=== PATIENT | female | born 1950 | race Caucasian/White ===

== ENCOUNTER 2018-05-17 14:08 | Outpatient (CLI) | payer MEDICARE, MEDICAID ==
--- NOTE | 2018-05-17 15:37 | MRI ---
NONCONTRAST MRI CERVICAL SPINE: 05/17/2018 HISTORY: Neck pain for several years, and right shoulder pain for the last six months. FINDINGS: There is mild cerebral and cerebellar volume loss partially seen. The cervicomedullary junction has normal signal intensity. There is mild heterogeneity of the bone marrow, the majority of which is related to endplate degenera tive changes. Multilevel degenerative changes are present with multilevel osteophytes seen anteriorl y and posteriorly. C2-C3: There is a mild broad-based disk osteophyte complex, which slightly narrows the ventral subar achnoid space. There are facet degenerative changes on the right, resulting in mild to moderate righ t-sided neural foraminal narrowing. The left neural foramen is patent. C3-C4: There is a broad-based disk osteophyte complex. This narrows the central spinal canal, and t here is mild flattening at the ventral aspect of the spinal cord. The right neural foramen is patent , but there is mild to moderate left-sided neural foraminal narrowing. C4-C5: There is loss of intervertebral disk height. A broad-based disk osteophyte complex is presen t, greater on the right, with associated uncinate process hypertrophy. This results in generalized n arrowing of the central spinal canal. There is mild to moderate right-sided neural foraminal narrowi ng. The left neural foramen is patent. C5-C6: There is loss of intervertebral disk height. There is a broad-based disk osteophyte complex present. This results in mild to moderate narrowing of the central spinal canal. There is flattenin g at the anterior aspect of the spinal cord, but there is normal signal intensity in the spinal cord. There is mild right and severe left-sided neural foraminal narrowing. C6-C7: There is loss of intervertebral disk height. There is a broad-based disk osteophyte complex seen posteriorly. Findings result in moderate narrowing of the central spinal canal and flattening a t the anterior aspect of the spinal cord. There is moderate left and moderate to severe right-sided neural foraminal narrowing. C7-T1: There is a broad-based disk osteophyte complex that mildly narrows the ventral subarachnoid s pace. The neural foramina appear patent, although there is mild encroachment on the left neural fora men. T1-T2: There is trace anterolisthesis of T1 on T2. There is a mild disk osteophyte complex, which o nly results in slight effacement of the ventral subarachnoid space. The neural foramina are patent. IMPRESSION: 1. Multilevel degenerative changes throughout the cervical spine. 2. Slight reversal of the normal cervical lordotic curvature, which may be related to muscle spasm o r positioning. 3. Trace anterolisthesis of T1 on T2. POS: [facility]
== END 2018-05-17 14:09 | disposition home or self-care (01) ==
LOC: SCSMRI 14:08
PROVIDERS: ATTEND Orthopaedic Surgery
DX: M47.22 Other spondylosis with radiculopathy, cervical region (principal); M19.011 Primary osteoarthritis, right shoulder
CPT/HCPCS: 72141

== ENCOUNTER 2018-05-17 14:11 | Outpatient (CLI) | payer MEDICARE, MEDICAID ==
--- NOTE | 2018-05-17 16:02 | MMO ---
BILATERAL SCREENING MAMMOGRAMS: 05/17/18 HISTORY: 67-year-old female patient presenting for screening mammogram. This is the patient's baseline screeni ng mammogram. COMPARISON: None available. FINDINGS: Scattered fibroglandular densities are seen in each breast. There are benign appearing calcifications seen in each breast. However, there is a grouping of microcalcifications seen in the upper outer lef t breast with associated increased density. This could potentially represent a degenerating fibroaden patrica, but further evaluation is warranted. There are scattered bilateral nodules/masses of varying siz e within each breast and given multiplicity suggests benign findings. No architectural distortion is seen in either breast. IMPRESSION: 1. BIRADS 0: Incomplete: Need Additional Imaging Evaluation and/or Prior Mammograms for Compari son. Magnification CC and MLO views left breast in addition to 90 degree mediolateral view are recomm ended for further evaluation. Ultrasound should be scheduled at this time if needed. 2. Above findings were reviewed with Dr. Clement who is in agreement with the above finding sand a ssessment. POS: [facility]
--- NOTE | 2018-05-17 17:54 | CT ---
CT RIGHT SHOULDER WITHOUT CONTRAST 05/17/18 HISTORY: M19.01. Shoulder pain for six months. COMPARISON: None. FINDINGS: There is severe degenerative changes of the glenohumeral joint. Very large osteophytes are present of the humeral head and neck. There is flattening of the articular surface of the humerus as well as gl enoid. There is some retroversion of the glenoid approximately 25 degrees. There is complete cartilag e loss of the inferior glenoid and humeral head. There is 30 to 40% atrophy of the supraspinatus muscle. The infraspinatus muscles without significant atrophy. The deltoid is without significant atrophy. There is mild undersurface remodeling of the acromion. No acute fracture or malalignment. IMPRESSION: 1. Severe degenerative changes of the glenohumeral joint approximately 25 degrees retroversion o f the glenoid with posterior articular surface remodeling and very large osteophytes of the humeral h ead. 2. 30 to 40% atrophy of the supraspinatus muscle. No significant atrophy of the deltoid. POS: [facility]
== END 2018-05-17 14:12 | disposition home or self-care (01) ==
LOC: SCSMAMMO 14:11
PROVIDERS: ATTEND Family Medicine
DX: Z12.31 Encounter for screening mammogram for malignant neoplasm of breast (principal); M19.011 Primary osteoarthritis, right shoulder; M62.511 Muscle wasting and atrophy, not elsewhere classified, right shoulder
CPT/HCPCS: 77067

== ENCOUNTER 2019-03-11 12:56 | Outpatient (CLI) | payer MEDICARE, MEDICAID ==
--- NOTE | 2019-03-12 15:27 | MMO ---
Bilateral MAMMO Bilat Diag [facility]. CLINICAL HISTORY: Patient is 68 years old and is seen for diagnostic exam. The patient has no family history of breast cancer. The patient has no personal history of cancer. VIEWS: The views performed were: bilateral craniocaudal with tomosynthesis; bilateral mediolateral oblique with tomosynthesis; and bilateral mediolateral with tomosynthesis. FILMS COMPARED: The present examination has been compared to a prior imaging study performed at [facility] on 05/17/2018. MAMMOGRAM FINDINGS: There are scattered fibroglandular densities. There are stable calcifications seen in both breasts. There are no suspicious masses, suspicious calcifications, or new areas of architectural distortion. IMPRESSION: THERE IS NO MAMMOGRAPHIC EVIDENCE OF MALIGNANCY. A ROUTINE FOLLOW-UP MAMMOGRAM IN 1 YEAR IS RECOMMENDED. THE RESULTS OF THIS EXAM WERE SENT TO THE PATIENT. ACR BI-RADS Category 2 - Benign finding MAMMOGRAPHY NOTE: 1. A negative mammogram report should not delay a biopsy if a dominant of clinically suspicious mass is present. 2. Approximately 10% to 15% of breast cancers are not detected by mammography. 3. Adenosis and dense breasts may obscure an underlying neoplasm. Reported by: VANI LAYNE MD Electonically Signed: [id number]
== END 2019-03-11 12:57 | disposition home or self-care (01) ==
LOC: BICMAMMO 12:56
PROVIDERS: ATTEND Family Medicine
DX: R92.8 Other abnormal and inconclusive findings on diagnostic imaging of breast (principal)
CPT/HCPCS: 77066; G0279